=== PATIENT | female | born 1955 | race African-American/Black ===

== ENCOUNTER → 2018-08-22 | Outpatient (CLI) | payer MEDICARE, MEDICAID ==
[~2018-08-22] MED LIST: ACET-3161 PO; AMLO10TA80 PO; AMLO5TAB88 PO; ASPI-1158 PO; BARIUM SULFATE 450ML ORAL SUSP ONE; CALC600T2 PO; CARI350T27 PO; CYCL10TA7 PO; D-ME473S8 PO; FERR-63 PO; FURO-151 PO; IOHEXOL-300 100 ML BOTTLE ONE; KLUD40 PO; LEVO75TA7 PO; SIMV40TA5 PO
== END | disposition home or self-care (01) ==
LOC: CT 06:10
PROVIDERS: ATTEND Surgery
DX: R10.9 Unspecified abdominal pain (principal); Z98.84 Bariatric surgery status; Z90.49 Acquired absence of other specified parts of digestive tract
CPT/HCPCS: 74177; Q9967

== ENCOUNTER 2019-05-30 16:54 | Emergency (ER) | payer MEDICARE, MEDICAID ==
[~2019-05-30] VITALS: Ht 154.9 cm; Wt 122.0 kg
[~2019-05-30 16:54] MED LIST changes: -BARIUM SULFATE 450ML ORAL SUSP ONE; -IOHEXOL-300 100 ML BOTTLE ONE; +SIMV-46 PO; -SIMV40TA5 PO
[2019-05-30 22:58] VITALS: BP 143/83
== END 2019-05-30 22:58 | disposition home or self-care (01) ==
LOC: ER 16:54
DX: T50.8X5A Adverse effect of diagnostic agents, initial encounter (principal); L03.114 Cellulitis of left upper limb; I10 Essential (primary) hypertension; Z90.49 Acquired absence of other specified parts of digestive tract; E89.0 Postprocedural hypothyroidism; Y92.018 Other place in single-family (private) house as the place of occurrence of the external cause
CPT/HCPCS: 99282

== ENCOUNTER 2021-06-14 14:38 | Emergency (ER) | payer MEDICARE, MEDICAID ==
[~2021-06-14] VITALS: Ht 154.9 cm; Wt 116.0 kg
[~2021-06-14 14:38] MED LIST changes: -ASPI-1158 PO; +ASPI-1406 PO
[2021-06-14 14:42] VITALS: BP 139/85
[2021-06-14] MEDS ORDERED: MECLIZINE 25MG TABLET PO ONE (15:30)
[2021-06-14 15:33] LABS: CHLORIDE 105 mEq/L (98-107)
[2021-06-14 15:43] LABS: BASOPHILS % 0.4 % (0.0-2.0); EOSINOPHILS % 2.7 % (0.0-5.0); HEMATOCRIT. 40.6 % (36.0-48.0); HEMOGLOBIN. 13.1 g/dL (12.0-16.0); MEAN CORPUSCULAR HEMOGLOBIN 27.1 pg (28.0-32.0); MEAN CORPUSCULAR VOLUME 84.2 fL (81.0-99.0); MEAN PLATELET VOLUME 9.1 fl (7.4-10.4); MONOCYTES % 3.9 % (2.0-8.0); PLATELET 246 x1000/uL (130-400); RED BLOOD CELL COUNT 4.82 mill/uL (4.2-5.4); RED CELL DISTRIBUTION WIDTH 13.7 % (11.6-14.6)
[2021-06-14 20:21] LABS: CLARITY URINE CLEAR (CLEAR); COLOR URINE YELLOW (YELLOW); KETONES URINE TRACE (NEGATIVE); LEUKOCYTE ESTERASE URINE 2+ (NEGATIVE); NITRITE URINE NEGATIVE (NEGATIVE); OCCULT BLOOD URINE NEGATIVE (NEGATIVE); PH URINE 5.5 (4.5-8.0); PROTEIN URINE TRACE (NEGATIVE); SPECIFIC GRAVITY URINE 1.024 (1.005-1.030)
[2021-06-14] MEDS ORDERED: NITR-87 MT (22:17)
[2021-06-14] MEDS ORDERED: MECL-159 MT (22:17)
== END 2021-06-14 22:36 | disposition home or self-care (01) ==
LOC: ER 14:38
DX: R42 Dizziness and giddiness (principal); I10 Essential (primary) hypertension; Z90.49 Acquired absence of other specified parts of digestive tract; E89.0 Postprocedural hypothyroidism; Z79.82 Long term (current) use of aspirin
CPT/HCPCS: 36415; 70551; 71045; 80053; 81003; 84484; 85025; 93005; 99285; J8597

== ENCOUNTER 2022-06-03 08:12 | Emergency (ER) | payer MEDICARE, MEDICAID ==
[~2022-06-03] VITALS: Ht 167.6 cm; Wt 109.0 kg
[~2022-06-03 08:12] MED LIST changes: +CYCL10TA21 PO; -CYCL10TA7 PO; +MECL-159 MT; +NITR-87 MT
[2022-06-03 08:15] VITALS: BP 145/81
[2022-06-03] MEDS ORDERED: IBUPROFEN 600MG TABLET PO STA (08:21)
[2022-06-03 09:30] LABS: BASOPHILS % 0.6 % (0.0-2.0); EOSINOPHILS % 2.1 % (0.0-5.0); HEMATOCRIT. 43.3 % (36.0-48.0); HEMOGLOBIN. 14.1 g/dL (12.0-16.0); LYMPHOCYTES % 30.9 % (20.0-50.0); MEAN CORPUSCULAR HEMOGLOBIN 27.9 pg (28.0-32.0); MEAN CORPUSCULAR VOLUME 85.6 fL (81.0-99.0); MEAN PLATELET VOLUME 8.5 fl (7.4-10.4); MONOCYTES % 4.6 % (2.0-8.0); NEUTROPHILS % 61.8 % (40.0-76.0); PLATELET 283 x1000/uL (130-400); RED BLOOD CELL COUNT 5.06 mill/uL (4.2-5.4); RED CELL DISTRIBUTION WIDTH 14.5 % (11.6-14.6)
[2022-06-03 09:37] LABS: CHLORIDE 105 mEq/L (98-107)
[2022-06-03] MEDS ORDERED: IBUP-2029 MT (11:55)
== END 2022-06-03 12:37 | disposition home or self-care (01) ==
LOC: ER 08:47
DX: R07.89 Other chest pain (principal); I10 Essential (primary) hypertension; Z79.899 Other long term (current) drug therapy; Z90.49 Acquired absence of other specified parts of digestive tract; Z98.890 Other specified postprocedural states; Z79.82 Long term (current) use of aspirin
CPT/HCPCS: 36415; 71045; 80053; 84484; 85025; 93005; 99285

== ENCOUNTER 2023-01-05 13:37 | Emergency (ER) | payer MEDICARE, MEDICAID ==
[~2023-01-05] VITALS: Ht 157.5 cm; Wt 90.0 kg
[~2023-01-05 13:37] MED LIST changes: +IBUP-2029 MT; -MECL-159 MT; +MECL-299 MT
[2023-01-05 13:53] VITALS: TEMP 98.4; O2SAT 97
[2023-01-05 14:25] LABS: BASOPHILS % 0.8 % (0.0-2.0); DIFFERENTIAL COMMENT 0; EOSINOPHILS % 2.5 % (0.0-5.0); HEMATOCRIT. 44.3 % (36.0-48.0); HEMOGLOBIN. 14.6 g/dL (12.0-16.0); LYMPHOCYTES % 51.3 % (20.0-50.0); MEAN CORPUSCULAR HEMOGLOBIN 28.7 pg (28.0-32.0); MEAN CORPUSCULAR VOLUME 86.8 fL (81.0-99.0); MEAN PLATELET VOLUME 9.1 fl (7.4-10.4); MONOCYTES % 8.4 % (2.0-8.0); PLATELET 219 x1000/uL (130-400); RED CELL DISTRIBUTION WIDTH 13.1 % (11.6-14.6); WHITE BLOOD COUNT 5.4 x1000/uL (4.5-11.0)
[2023-01-05 14:43] LABS: CLARITY URINE CLOUDY (CLEAR); COLOR URINE DARK YELLOW (YELLOW); GLUCOSE URINE NEGATIVE (NEGATIVE); KETONES URINE TRACE (NEGATIVE); LEUKOCYTE ESTERASE URINE 2+ (NEGATIVE); NITRITE URINE NEGATIVE (NEGATIVE); OCCULT BLOOD URINE NEGATIVE (NEGATIVE); PH URINE 5.5 (4.5-8.0); PROTEIN URINE 1+ (NEGATIVE); SPECIFIC GRAVITY URINE 1.028 (1.005-1.030)
[2023-01-05 15:05] LABS: ALANINE AMINOTRANSFERASE 27 IU/L (13-61); ALBUMIN 3.8 g/dL (3.4-5.0); ASPARTATE AMINOTRANSFERASE 20 IU/L (15-37); BILIRUBIN TOTAL 0.7 mg/dL (0.1-1.0); CALCIUM 9.2 mg/dL (8.5-10.1); CARBON DIOXIDE 27 mEq/L (21-32); CHLORIDE 108 mEq/L (98-107); CREATININE 0.9 mg/dL (0.6-1.3); GLUCOSE 85 mg/dL (70-105); INDEX HEMOLYSI 2 (1-3); INDEX ICTERIC 1 (1-4); INDEX LIPEMIC 1 (1-3); POTASSIUM 4.4 mEq/L (3.5-5.1); PROTEIN TOTAL 8.3 g/dL (6.0-8.3); SODIUM 138 mEq/L (136-145); UREA NITROGEN BLOOD 12 mg/dL (7-21)
[2023-01-05 15:07] LABS: SQUAMOUS EPITHELIAL CELL URINE 2+ /lpf (RARE/1+)
[2023-01-05 15:08] LABS: BACTERIA URINE 1+
[2023-01-05 15:09] LABS: RBC URINE 0-2 /hpf (0-2)
[2023-01-05 17:17] VITALS: BP 136/81; PULSE 86; RESP 18
== END 2023-01-05 17:20 | disposition home or self-care (01) ==
LOC: ER 13:37
DX: R60.0 Localized edema (principal); I10 Essential (primary) hypertension; Z86.73 Personal history of transient ischemic attack (TIA), and cerebral infarction without residual deficits; Z90.49 Acquired absence of other specified parts of digestive tract; Z98.890 Other specified postprocedural states
CPT/HCPCS: 36415; 80053; 81003; 85025; 93971; 99284

== ENCOUNTER → 2023-06-29 | Outpatient (CLI) | payer MEDICARE, MEDICAID | END | disposition home or self-care (01) | LOC: MAMMO 07:37 | DX: R92.1 Mammographic calcification found on diagnostic imaging of breast (principal); N60.31 Fibrosclerosis of right breast; N60.32 Fibrosclerosis of left breast; N64.9 Disorder of breast, unspecified; N63.0 Unspecified lump in unspecified breast; N64.4 Mastodynia | CPT/HCPCS: 77062; 77066; G0279 ==

== ENCOUNTER → 2024-07-19 | Outpatient (CLI) | payer MEDICARE, MEDICAID | END | disposition home or self-care (01) | LOC: MAMMO 06:13 | DX: Z12.31 Encounter for screening mammogram for malignant neoplasm of breast (principal); R92.323 Mammographic fibroglandular density, bilateral breasts; R92.1 Mammographic calcification found on diagnostic imaging of breast | CPT/HCPCS: 77063; 77067 ==